=== PATIENT | female | born 1990 | race Caucasian/White ===

== ENCOUNTER 2018-05-23 18:26 | Emergency (ER) | payer BC ==
[2018-05-23 19:34] LABS: #Basophils 0.1 thou/uL (0.0-0.2); #Eosinphils 0.1 thou/uL (0.0-0.7); #Lymphocytes 1.7 thou/uL (1.20-3.40); #Monocytes 0.6 thou/uL (0.11-0.59); #Neutrophils 5.8 thou/uL (1.40-6.50); %Basophils 0.7 % (0.0-1.0); %Eosinophils 0.8 % (0.0-10.0); %Lymphocytes 20.5 % (21.0-51.0); %Monocytes 6.9 % (0.0-10.0); %Neutrophils 71.2 % (42.0-75.0); Hemoglobin 12.8 g/dL (12.0-16.0); Mean Corpuscular Volume 88.7 fL (78.0-98.0); Mean Platelet Volume 7.2 fL (7.4-10.4); Platelet Count 216 thou/uL (130-400); RBC Distribution Width 11.9 % (11.5-14.5); Red Blood Cell (RBC) Count 4.12 mill/uL (4.20-5.40); White Blood Cell (WBC) Count 8.1 thou/uL (4.8-10.8)
[2018-05-23 19:49] LABS: ALT (SGPT) 126 U/L (8-55); AST (SGOT) 99 U/L (5-34); Albumin 4.6 g/dL (3.5-5.0); Alkaline Phosphatase 66 U/L (40-150); Anion Gap 12 mmol/L (10-20); BUN (Urea Nitrogen) 11 mg/dL (7.0-18.7); Bilirubin, Total 0.6 mg/dL (0.2-1.2); Calc. Creatinine Clearance 0 mL/min (70-130); Calcium 9.7 mg/dL (7.8-10.44); Carbon Dioxide 24 mmol/L (22-29); Chloride 107 mmol/L (98-107); Estimated GFR-MDRD Greater than 90; Glucose 76 mg/dL (70-105); Lipase 19 U/L (8-78); Protein, Total 7.6 g/dL (6.0-8.3); Sodium 140 mmol/L (136-145)
[2018-05-23 19:55] LABS: Bilirubin Negative (Negative); Blood, Urine Negative (Negative); Clarity Slightly Cloudy (Clear); Glucose, Urine (Dipstick) Negative (Negative); Leukocyte Negative (Negative); Nitrite Negative (Negative); Protein, Urine (Dipstick) Negative (Neg-Trace); Specific Gravity, Urine 1.025 (1.005-1.030)
[2018-05-23 20:22] LABS: Potassium 3.3 mmol/L (3.5-5.1)
[2018-05-23] MEDS ORDERED: Potassium Chloride 20 MEQ TAB ONE (21:23)
--- NOTE | 2018-05-23 21:34 | ULT ---
PELVIC ULTRASOUND 05/23/18 HISTORY: Pelvic pain, positive . FINDINGS: Multiple transabdominal sonographic images of the pelvis are obtained. The uterus measures 9.7 cm x 5 .3 cm x 7.5 cm. there is a fluid collection seen within the endometrial canal which contains a pole and yolk sac. The crown-rump length measures 0.88 cm corresponding to gestational age of 6 weeks and 6 days with AMAURY on 01/10/19. Gestational age by the last menstrual period is 7 weeks and 4 days. C ardiac doppler does demonstrate heart tones with a heart rate of 132 beats per minute. No findings to suggest a subchorionic hemorrhage are seen. The uterus does demonstrate mild heterogenei ty. A discrete measurable mass is not visualized, although anterior body of the uterus is slightly pr ominent and uterine fibroids cannot be entirely excluded. The ovaries demonstrate a normal sonographic appearance bilaterally. The left ovary measures 2.1 cm x 1.7 cm x 2.4 cm with the right ovary measuring 3.3 cm x 1.8 cm x 3.3 cm. Doppler evaluation of each ovary with spectral analysis and color flow evaluation demonstrates arteri al and venous flow in each ovary. No free fluid is seen in the cul-de-sac. IMPRESSION: 1. Single intrauterine gestation with heart tones documented. Gestational age by measureme nt of the crown-rump length is 6 weeks and 6 days with AMAURY on 01/10/19. 2. Heterogeneity of the uterus. 3. Normal appearing bilateral ovaries with arterial flow documented in each ovary. POS: [facility]
== END 2018-05-23 21:26 | disposition home or self-care (01) ==
LOC: SCSER 18:26
DX: O99.89 Other specified diseases and conditions complicating pregnancy, childbirth and the puerperium (principal); R10.2 Pelvic and perineal pain; R74.8 Abnormal levels of other serum enzymes; O99.341 Other mental disorders complicating pregnancy, first trimester; Z3A.01 Less than 8 weeks gestation of pregnancy
CPT/HCPCS: 36415; 76856; 80053; 81003; 83690; 84702; 85025

== ENCOUNTER 2018-11-21 12:16 | Day surgery (SDC) | payer OTHER ==
[2018-11-21 12:36] VITALS: BP 123/81; TEMP 97.7; BMI 29.2
[2018-11-21] MEDS ORDERED: hydrALAZINE 20 MG/ML VIAL SLOW IVP PRN (12:56)
--- NOTE | 2018-11-21 13:04 | PDOC.LDHP ---
Labor and Delivery H&P Chief complaint: contractions HPI: Patient of Dr Goldberg Time: 1300 Location: Triage A Here for possible CTX at 32 weeks 3 days HPI: 28 yo at 32 weeks with HX of TERM svds in past, here for possible lower pelvic CTX. States she vomited a few times this AM. No LOF, no VB, no recent sex. No dysuria but may be some low band like pain. No fevers, no decrease in FM. Review of Systems: Complete ROS completed and as per HPI Current gestational age (weeks): 32 (3 days) Dating criteria: last menstrual period Grav: 3 Para: 2 OB History Details: x2, term. Current complications: none Abnormal US findings: No Current medications: pre- vitamins Previous surgical history: other (arthroscpoy left knee) Allergies/Adverse Reactions: Allergies Allergy/AdvReac Type Severity Reaction Status Date / Time No Known Drug Allergies Allergy Verified 09/17/15 00:57 Social history: none - Physical Exam Vital signs reviewed and normal: yes (123/81 97.7 106 16) General: NAD Heart: RRR Lungs: CTAB Abdomen: gravid Extremeties: no edema FHT: category 1 (Cat 1/ NST reactive for EGA) [place] contractions every: irritability but no set CTX pattern - Assessment at 32 weeks 3 days with threatened PTL vs [place]. reactive NST. No evidence ROM. - Plan Plan: observation in L&D (1. NST reactive- continue to follow 2. FFN and CX length ordered by protocol for threatened PTL. We will also check cath UA for ASB 3. If FFN pos or short CX...perform digital cervical exam. 4/ If true PTL suspected: will need steroids, GBS coverage, sono for EGW, but no MAG as greatrer than 32 weeks)
[2018-11-21 13:17] LABS: Bacteria/HPF None Seen HPF (None Seen); Bilirubin Negative (Negative); Blood, Urine Negative (Negative); Clarity Clear (Clear); Glucose, Urine (Dipstick) Normal (Negative); Leukocyte Negative Leu/uL (Negative); Nitrite Negative (Negative); Protein, Urine (Dipstick) 20 mg/dL (Neg-Trace); RBC/HPF 0-3 HPF (0-3); Squamous Epithelial 0-3 HPF (0-3); Urobilinogen Normal mg/dL (Less than 2); WBC/HPF 0-3 HPF (0-3)
[2018-11-21 13:22] LABS: Urine Culture Reflex No No
--- NOTE | 2018-11-21 13:37 | ULT ---
LIMITED OBSTETRICAL ULTRASOUND: INDICATIONS: Evaluation cervical length. FINDINGS: The cervix measures approximately 3.6 cm. No overt funneling is evident. IMPRESSION: Cervical length of 3.6 cm. POS: [facility]
[2018-11-21 13:49] LABS: FFN Internal QC Analyzer PASS (PASS); FFN Internal QC Cassette PASS (PASS); Fetal Fibronectin Negative (Negative)
--- NOTE | 2018-11-21 14:04 | PDOC.EVN ---
Event Note - Event Note Event Note: Lab Check: FFN. negative CX 3.6cm UA was clean (no evidence UTI)... DX: Discomforts of /[place]
== END 2018-11-21 14:10 | disposition home or self-care (01) ==
LOC: L&D/OP 12:16
PROVIDERS: ATTEND Obstetrics & Gynecology
DX: O47.03 False labor before 37 completed weeks of gestation, third trimester (principal); O21.2 Late vomiting of pregnancy; Z3A.32 32 weeks gestation of pregnancy
CPT/HCPCS: 76815; 81001; 82731; 99283

== ENCOUNTER 2018-12-29 16:21 | Day surgery (SDC) | payer OTHER ==
[2018-12-29 16:59] VITALS: BP 128/92; TEMP 98.1; BMI 30.8
[2018-12-29] MEDS ORDERED: hydrALAZINE 20 MG/ML VIAL SLOW IVP PRN (18:39)
--- NOTE | 2018-12-29 20:06 | PRG ---
DATE OF SERVICE: 12/29/2018 TIME OF SERVICE: 1845 hours. PRESENTING COMPLAINT: Contractions at 37 weeks and 6 days. HISTORY OF PRESENT ILLNESS: Ms. Willoughby is a G6, P2, AB3 at 37 weeks and 6 days with AMAURY of 01/13/2019. She is blood type A negative. She reports contractions through the afternoon off and on. She denies rupture of membranes. She states last when she was at 3 cm she went to the labor room, was 8 cm 2 hours later. SQL DBA HISTORY: As noted, x2, miscarriage x3. The patient's is being complicated by an episode of rapid heart rate with presyncopal symptoms that disappeared. These are resolved on their own with Valsalva maneuvers and have not recurred. Blood type A negative. Group B strep negative. 50-gram normal. Urine drug screen positive. Rubella immune. GC chlamydia negative. On retest positive. Antibody negative. PAST MEDICAL HISTORY: None. PAST SURGICAL HISTORY: Arthroscopy. ALLERGIES: NONE. MEDICATIONS: vitamins and flexeril. SOCIAL HISTORY: Denies tobacco, alcohol, or IV drug use. FAMILY HISTORY: Noncontributory. REVIEW OF SYSTEMS: Noncontributory. PHYSICAL EXAMINATION: GENERAL: White female, in no acute distress. VITAL SIGNS: Blood pressure 118/72, pulse 85, respirations 18, temperature 97.9. HEENT: Within normal limits. LUNGS: Cleat to auscultation bilaterally. HEART: Regular rate and rhythm. ABDOMEN AND : Soft and nontender. Fundal height 37 cm. FHTs 140s. Vulva without lesions. Vagina without discharge. Cervical exam by RN . The patient had a reactive heart rate tracing category 1 x1. She was allowed to walk for 1 to 2 hours and was rejected at the end of 1 to 2 hours. She had a repeat category 1 heart rate tracing and unchanged cervix with only occasional uterine irritability noted. IMPRESSION: [place] contractions. No evidence of active labor at 37 to 38 weeks gestation. PLAN: Discharge home. ER precautions. Keep scheduled followup with Dr. Goldberg this week. Job ID: [id number]
== END 2018-12-29 18:53 | disposition home or self-care (01) ==
LOC: L&D/OP 16:21
PROVIDERS: ATTEND Obstetrics & Gynecology
DX: O47.1 False labor at or after 37 completed weeks of gestation (principal); Z3A.37 37 weeks gestation of pregnancy
CPT/HCPCS: 99283

== ENCOUNTER 2019-01-06 06:38 | Inpatient (IN) | payer OTHER ==
[2019-01-06] MEDS ORDERED: Lidocaine 1% (PF) 30 ML VIAL ONE (06:46)
[2019-01-06] MEDS ORDERED: Lidocaine 1% (PF) 30 ML VIAL SC PRN (06:46)
[2019-01-06] MEDS ORDERED: Ondansetron PF 4 MG/2 ML Vial IVP PRN (06:46)
[2019-01-06] MEDS ORDERED: Ibuprofen 800 MG TAB PO PRN ×2 (06:46→16:14)
[2019-01-06] MEDS ORDERED: Promethazine HCl 25 MG/ML VIAL IM PRN (06:46)
[2019-01-06] MEDS ORDERED: Misoprostol 200 MCG TAB PR PRN (06:46)
[2019-01-06] MEDS ORDERED: hydrALAZINE 20 MG/ML VIAL SLOW IVP PRN (06:46)
[2019-01-06] MEDS ORDERED: HYDROcodone/Acetaminophen 5/325 mg Tablet PO PRN ×2 (06:46)
[2019-01-06] MEDS ORDERED: Butorphanol Tartrate 1 MG/ML VIAL SLOW IVP PRN (06:46)
--- NOTE | 2019-01-06 06:54 | PDOC.LDHP ---
Labor and Delivery H&P Chief complaint: contractions HPI: 28 yo WF c/o UCs since 3 am. Denies SROM. Current gestational age (weeks): 38 Due date: 01/13/19 Dating criteria: last menstrual period Grav: 3 Para: 2 OB History Details: PNC with Dr. Goldberg. Current complications: none Abnormal US findings: No Past Medical History: none Current medications: pre- vitamins Previous surgical history: other (knee x2) Allergies/Adverse Reactions: Allergies Allergy/AdvReac Type Severity Reaction Status Date / Time No Known Drug Allergies Allergy Verified 09/17/15 00:57 Social history: none - Physical Exam Vital signs reviewed and normal: yes General: breathing through contractions Abdomen: gravid Extremeties: trace edema FHT: category 1 [place] contractions every: q 2-3 mins - Vaginal Exam cm dilated: 6 Effacement: 75% Station: -1 - OB Labs GBS: negative - Assessment L&D Assessment: term patient in labor - Plan Plan: admit to L&D, informed consent obtained (Dr. Goldberg notified of admit)
[2019-01-06] MEDS: Lactated Ringer's 1,000 ML IV SCH (06:57)
[2019-01-06] MEDS ORDERED: Lactated Ringer's 1,000 ML IV SCH (07:00)
[2019-01-06] MEDS ORDERED: Butorphanol Tartrate 1 MG/ML VIAL ONE (07:00)
[2019-01-06] MEDS ORDERED: NS w/ Oxytocin 10 units 500 ML IV SCH (07:00)
[2019-01-06 07:01] VITALS: BMI 30.4
[2019-01-06] MEDS ORDERED: hydrALAZINE 20 MG/ML VIAL ONE (07:01)
[2019-01-06 07:21] LABS: Mean Corpuscular Hemoglobin 31.5 pg (27.0-31.0); Mean Corpuscular Volume 89.9 fL (78.0-98.0); Mean Platelet Volume 8.1 fL (7.4-10.4); Platelet Count 202 thou/uL (130-400); White Blood Cell (WBC) Count 9.2 thou/uL (4.8-10.8)
[2019-01-06] MEDS ORDERED: Magnesium Sulfate 20 gm/500 ml 20 GM/500 ML BAG ONE (07:24)
[2019-01-06] MEDS: Labetalol HCl 100 MG/20 ML VIAL ONE ×3 (07:32→09:18)
[2019-01-06] MEDS ORDERED: Labetalol HCl 100 MG/20 ML VIAL SLOW IVP PRN (07:59)
[2019-01-06 08:00] LABS: Syphilis Antibody Nonreactive (Nonreactive); Syphilis Antibody Index 0.07 S/CO (<1.00 Non-Reactive)
[2019-01-06] MEDS ORDERED: Calcium Gluc 4.6 MEQ/10 ML (100 MG/ML) SLOW IVP PRN (08:00)
[2019-01-06] MEDS ORDERED: Magnesium Sulfate 20 GM/WATER 500 ML BAG IVPB SCH (08:00)
[2019-01-06 08:01] LABS: HBSAg Index 0.14 S/CO (0-0.99); Hep B Surf Ag Non-Reactive S/CO (NonReactive)
[2019-01-06] MEDS: NS / Oxytocin 40 units/1000ml 1,000 ML IV PRN ×2 (08:11→14:07)
--- NOTE | 2019-01-06 08:25 | PDOC.OPDEL ---
OB Operative/Delivery Note Delivery Dr/Surgeon: Ashlyn Pre-Delivery Diagnosis: active labor, other (severe pih range blood pressures.) Procedure/Post Delivery Dx: spontaneous vaginal delivery Weeks gestation: 38 Anesthesia: local - Additional Findings/Plan Placenta delivered: spontaneous Repaired Obstetrical Laceration: 1st degree Estimated blood loss: 105 ml qbl Post delivery plan: recovery in LICU (severe PIH range blood pressures.)
[2019-01-06 10:46] LABS: Amphetamine Not Detected (NotDetected); Barbiturates Screen Not Detected (NotDetected); Benzodiazepine Screen Not Detected (NotDetected); Cocaine Metabolite Screen Not Detected (NotDetected); Medtox Control Line Valid? VALID (VALID); Medtox Reader # READER 4; Methadone Not Detected (NotDetected); Methamphetamine Not Detected (NotDetected); Opiate Screen Not Detected (NotDetected); Oxycodone Screen Not Detected (NotDetected); Phencyclidine (PCP) Not Detected (NotDetected); THC/Cannabinoid Screen Not Detected (NotDetected); Tricyclic Screen Not Detected (NotDetected)
[2019-01-06] MEDS ORDERED: NIFEdipine XL 30 MG TAB PO SCH (14:30)
[2019-01-06] MEDS: Magnesium Sulfate 20 gm/500 ml 20 GM/500 ML BAG IVPB SCH (15:55)
[2019-01-06] MEDS: Acetaminophen 500 MG TAB PO PRN (17:25)
[2019-01-07] MEDS: Magnesium Sulfate 20 gm/500 ml 20 GM/500 ML BAG IVPB SCH (02:03)
[2019-01-07] MEDS: Acetaminophen 500 MG TAB PO PRN (02:05)
[2019-01-07] MEDS: Lactated Ringer's 1,000 ML IV SCH ×3 (04:21→17:37)
[2019-01-07] MEDS: NIFEdipine XL 30 MG TAB PO SCH (08:58)
--- NOTE | 2019-01-07 09:01 | PDOC.PP ---
Post Progress Note Post Day #: 1 Subjective: No PIH symptoms...Baby doing well. PO intake tolerated: yes Flatus: yes Ambulation: yes Vital Signs (12 hours) Temp Pulse Resp BP 01/07/19 08:49 97.9 F 79 18 129/83 Weight Weight 189 lb Result Diagrams: 01/06/19 07:07 Additional Labs: Post Labs Blood Type A NEGATIVE 01/06/19 07:07 Hep Bs Antigen Non-Reactive S/CO (NonReactive) 01/06/19 07:07 - Assessment/Plan Post day 1 -- with severe PIH by Blood pressure criteria. S/p 24 hours magnesium prophylaxis. Blood pressures contolled with procardia 30 mg xl/ d. No further severe range readings. Transfer to post . Continue procardia. Possible discharge in AM.
[2019-01-07] MEDS ORDERED: Ibuprofen 800 MG TAB PO PRN (21:11)
[2019-01-07] MEDS ORDERED: Benzocaine-Menthol 82.5 ML CAN TOP PRN (21:11)
[2019-01-07] MEDS: Acetaminophen 325 MG TAB PO PRN (21:43)
[2019-01-08] MEDS: Acetaminophen 325 MG TAB PO PRN (06:40)
[2019-01-08] MEDS: NIFEdipine XL 30 MG TAB PO SCH (10:54)
[2019-01-08 11:49] VITALS: BP 131/88; TEMP 98.5
--- NOTE | 2019-01-08 12:21 | PDOC.PP ---
Post Progress Note Post Day #: 2 PO intake tolerated: yes Flatus: yes Ambulation: yes Vital Signs (12 hours) Temp Pulse Resp BP Pulse Ox 01/08/19 11:49 98.5 F 70 20 131/88 01/08/19 10:54 69 01/08/19 08:00 97.6 F 69 20 131/87 98 01/08/19 03:45 98.2 F 69 16 128/71 Weight Weight 189 lb Result Diagrams: 01/06/19 07:07 Additional Labs: Post Labs Blood Type A NEGATIVE 01/06/19 07:07 Hep Bs Antigen Non-Reactive S/CO (NonReactive) 01/06/19 07:07 - Assessment/Plan post partun day 2. Blood pressure satisfactorily controlled on procardia 30 mg xl/d. d/c home Follow up blood prssure in one week and 6 weeks post .
== END 2019-01-08 15:43 | disposition home or self-care (01) | DRG 807 ==
LOC: L&D/OP 06:38 → L&D 06:53 → 3SE 01-07 16:59
PROVIDERS: ADMIT Obstetrics & Gynecology; ATTEND Obstetrics & Gynecology
PROC: 10E0XZZ Delivery of Products of Conception, External Approach (ICD-10-PCS; principal; 2019-01-06)
PROC: 0HQ9XZZ Repair Perineum Skin, External Approach (ICD-10-PCS; 2019-01-06)
DX: O13.4 Gestational [pregnancy-induced] hypertension without significant proteinuria, complicating childbirth (principal); Z37.0 Single live birth; O70.0 First degree perineal laceration during delivery; Z3A.38 38 weeks gestation of pregnancy
CPT/HCPCS: 36415; 51702; 80306; 85027; 85461; 86780; 86850; 86900; 86901; 87340; 90384; 96372; 99285; J0360; J0595; J2001; J2405; J3475

== ENCOUNTER 2019-01-14 11:08 | Emergency (ER) | payer OTHER ==
[2019-01-14] MEDS ORDERED: Ondansetron PF 4 MG/2 ML Vial ONE (11:28)
[2019-01-14] MEDS ORDERED: Morphine 4 MG/ML VIAL ONE (11:28)
[2019-01-14 11:56] LABS: #Basophils 0.1 thou/uL (0.0-0.2); #Eosinphils 0.1 thou/uL (0.0-0.7); #Lymphocytes 1.3 thou/uL (1.20-3.40); #Monocytes 0.6 thou/uL (0.11-0.59); #Neutrophils 8.8 thou/uL (1.40-6.50); %Basophils 0.5 % (0.0-1.0); %Eosinophils 0.9 % (0.0-10.0); %Lymphocytes 12.3 % (21.0-51.0); %Monocytes 5.8 % (0.0-10.0); %Neutrophils 80.6 % (42.0-75.0); Bilirubin Small (Negative); Blood, Urine Large (Negative); Clarity Cloudy (Clear); Glucose, Urine (Dipstick) Negative (Negative); Hemoglobin 12.3 g/dL (12.0-16.0); Leukocyte Moderate (Negative); Mean Corpuscular HGB CONC 32.7 g/dL (32.0-36.0); Mean Corpuscular Hemoglobin 30.4 pg (27.0-31.0); Mean Platelet Volume 6.2 fL (7.4-10.4); Nitrite Negative (Negative); Platelet Count 294 thou/uL (130-400); Protein, Urine (Dipstick) Trace mg/dL (Neg-Trace); Red Blood Cell (RBC) Count 4.03 mill/uL (4.20-5.40); Urobilinogen 0.2 mg/dL (Less than 2); White Blood Cell (WBC) Count 10.9 thou/uL (4.8-10.8)
[2019-01-14 12:08] LABS: Bacteria/HPF 2+ HPF (None Seen); WBC/HPF 21-50 HPF (0-3)
[2019-01-14 12:14] LABS: ALT (SGPT) 15 U/L (8-55); AST (SGOT) 16 U/L (5-34); Albumin 4.1 g/dL (3.5-5.0); Alkaline Phosphatase 113 U/L (40-150); Anion Gap 15 mmol/L (10-20); BUN (Urea Nitrogen) 13 mg/dL (7.0-18.7); Bilirubin, Total 0.4 mg/dL (0.2-1.2); Calc. Creatinine Clearance 0 mL/min (70-130); Calcium 9.4 mg/dL (7.8-10.44); Carbon Dioxide 25 mmol/L (22-29); Chloride 104 mmol/L (98-107); Estimated GFR-MDRD Greater than 90; Globulin 3.8 g/dL (2.4-3.5); Glucose 68 mg/dL (70-105); Lipase 8 U/L (8-78); Potassium 4.4 mmol/L (3.5-5.1); Protein, Total 7.9 g/dL (6.0-8.3); Sodium 140 mmol/L (136-145)
--- NOTE | 2019-01-14 13:03 | ULT ---
TRANSABDOMINAL PELVIC ULTRASOUND: 01/14/19 HISTORY: Recent delivery. Abdominal pain. COMPARISON: None. TECHNIQUE: Transabdominal imaging of the pelvis is performed. Ovaries are interrogated with rhodes scale, color fl ow, Doppler imaging with spectral waveform analysis. FINDINGS: Enlarged uterus, compatible with a state of 7 days. No obvious myometrial masses. The uter us measures 9.5 x 8.4 x 12.6 cm. Endometrium is heterogeneous and thickened, measuring 2.5 cm. Right ovary has a normal echotexture measuring 3.1 x 2.3 x 2.4 cm. Left ovary has a normal echotexture measuring 2.5 x 2.3 x 3.3 cm. No free fluid. OVARIAN DOPPLER: Vascular flow to the left and right ovary. IMPRESSION: 1. Changes involving the uterus compatible with a recent state. 2. Complex echogenic endometrium, likely due to a recent state. If there is concern f or retained products of conception, consider OB-APARTMENT LEASING MANAGER consultation. POS: [facility]
== END 2019-01-14 13:26 | disposition home or self-care (01) ==
LOC: SCSER 11:08
DX: O99.89 Other specified diseases and conditions complicating pregnancy, childbirth and the puerperium (principal); R10.9 Unspecified abdominal pain
CPT/HCPCS: 76856; 80053; 81003; 81015; 83690; 85025; 93976; 96361; 96374; 96375; J2270; J2405